=== PATIENT | male | born 1935 | race Caucasian/White ===

== ENCOUNTER 2017-01-13 09:52 | Observation (INO) | payer MEDICARE, BC ==
[2017-01-13] MEDS ORDERED: Albuterol-Ipratrop 3 mg / 0.5 (3 ml) UD ONE ×2 (10:00→11:47)
[2017-01-13] MEDS ORDERED: Albuterol-Ipratrop 3 mg / 0.5 (3 ml) UD IH STA (11:05)
[2017-01-13 11:42] LABS: BASO # 0.1 K/uL (0.0-0.2); BASO % 0.8 % (0.0-2.0); EOS % 0.3 % (0.0-4.0); HEMATOCRIT 34.2 % (34.0-47.0); LYMPH # 0.7 K/uL (1.0-4.3); LYMPH % 6.4 % (20.0-40.0); MEAN CELL VOLUME 95.1 fL (81.0-99.0); MEAN CORPUSCULAR HEMOGLOBIN 31.6 pg (27.0-31.0); MEAN CORPUSCULAR HGB CONC 33.3 g/dL (33.0-37.0); MEAN PLATELET VOLUME 9.1 fL (7.2-11.7); PLATELET COUNT 168 K/uL (130-400); RED CELL DISTRIBUTION WIDTH 14.9 % (11.5-14.5); WHITE BLOOD COUNT 10.8 K/uL (4.8-10.8)
[2017-01-13] MEDS ORDERED: Ipratropium 0.02% Inhal Soln (0.5 mg/2.5 ml) UD IH ONE (11:47)
--- NOTE | 2017-01-13 11:55 | C.PDOC ---
History Of Present Illness 81 y/o F c PMHx ESRD on HD, COPD p/w general weakness x 3 days. Patient missed dialysis on Friday. He denies fever, chills, chest pain, cough, dyspnea, nausea , vomiting, diarrhea, dysuria, injury. Time Seen by Provider: 01/13/17 10:47 Chief Complaint (Nursing): Shortness Of Breath Past Medical History Vital Signs: Last Vital Signs Temp 98.4 F 01/13/17 10:04 Pulse 83 01/13/17 14:57 Resp 22 01/13/17 14:57 BP 179/63 H 01/13/17 14:57 Pulse Ox 96 01/13/17 14:57 - Medical History PMH: HTN, End Stage Renal Disease Family History: States: No Known Family Hx - Social History Hx Alcohol Use: No Hx Substance Use: No - Immunization History Hx Tetanus Toxoid Vaccination: No Hx Influenza Vaccination: Yes (2015) Hx Pneumococcal Vaccination: Yes (2015) Review Of Systems Except As Marked, All Systems Reviewed And Found Negative. Constitutional: Negative for: Fever Cardiovascular: Negative for: Chest Pain Physical Exam - Physical Exam Additional Physical Exam Comments: Constitutional: No acute distress. Head: Normocephalic. Atraumatic. Eyes: PERRL. EOMI ENT: Moist mucous membranes. Neck: Supple. Cardiovascular: Regular rate. Radial pulses 2+ bilaterally. Chest: No tenderness. Respiratory: Tachypneic. Wheezing diffusely. GI: Soft. Nontender. Nondistended. Back: No CVA tenderness. No midline tenderness. Musculoskeletal: No tenderness or swelling of extremities. Skin: No rash. Neurologic: Alert, no focal deficit. ED Course And Treatment - Laboratory Results Result Diagrams: 01/13/17 11:36 01/13/17 11:36 O2 Sat by Pulse Oximetry: 93 Medical Decision Making Medical Decision Making: Patient appears to have COPD exacerbation although he denied any trouble breathing multiple times. Also with hyperkalemia and elevated proBNP. All will likely resolve with dialysis. Dr. Vines consulted. Dr. Seth accepts patient to observation for emergent dialysis. Disposition - Disposition Disposition: HOSPITALIZED Disposition Time: 12:50 Condition: FAIR - Clinical Impression Clinical Impression: Hyperkalemia, Shortness of breath
[2017-01-13 12:04] LABS: NEUTROPHIL 77 % (50-75); TOTAL CELLS COUNTED 100
[2017-01-13 12:05] LABS: ALB/GLOB RATIO 1.4 (1.0-2.1); CALCIUM 7.1 mg/dl (8.6-10.4); TOTAL PROTEIN 6.9 g/dL (6.3-8.3)
[2017-01-13 12:40] LABS: POTASSIUM 6.4 mmol/L (3.6-5.2)
--- NOTE | 2017-01-13 12:51 | RAD ---
HISTORY: weakness, missed dialysis COMPARISON: No prior. FINDINGS: LUNGS: Moderate venous congestion with bibasilar airspace opacities and small right pleural effusion. PLEURA: As above. CARDIOVASCULAR: Cardiomegaly. Calcification at the aortic knob. Left axillary stent in place. OSSEOUS STRUCTURES: No significant abnormalities. VISUALIZED UPPER ABDOMEN: Normal. OTHER FINDINGS: None. IMPRESSION: Moderate venous congestion with bibasilar airspace opacities and small right pleural effusion.
--- NOTE | 2017-01-13 13:32 | CP.PCM.CON ---
History of Present Illness - History of Present Illness History of Present Illness: 81 y/o F c PMHx ESRD on HD, COPD p/w general weakness x 3 days. Patient missed dialysis on Friday. He denies fever, chills, chest pain, cough, dyspnea, nausea , vomiting, diarrhea, dysuria, injury. Recently poorly compliant with dialysis sessions Now very dyspneic and has K=6.4 PMH: HTN CON COPD CONSULT DICTATED WILL ARRANGE FOR IMMEDIATE DIALYSIS Past Patient History - Past Social History Smoking Status: Never Smoked - CARDIAC Hx Hypertension: Yes - RENAL Hx Dialysis: Yes Type of Dialysis Access: Left AV shunt Date of Last Dialysis Treatment: 01/08/17 - PSYCHIATRIC Hx Substance Use: No - SURGICAL HISTORY Hx Surgeries: No - ANESTHESIA Hx Anesthesia: No Meds Allergies/Adverse Reactions: Allergies Allergy/AdvReac Type Severity Reaction Status Date / Time No Known Allergies Allergy Verified 01/13/17 10:09 Results - Vital Signs Recent Vital Signs: Last Vital Signs Temp 98.4 F 01/13/17 10:04 Pulse 81 01/13/17 10:04 Resp 25 H 01/13/17 10:04 BP 188/65 H 01/13/17 10:04 Pulse Ox 93 L 01/13/17 11:55 - Labs Result Diagrams: 01/13/17 11:36 01/13/17 11:36 Labs: Laboratory Results - last 24 hr 01/13/17 01/13/17 11:36 11:36 WBC 10.8 RBC 3.60 L Hgb 11.4 Hct 34.2 MCV 95.1 MCH 31.6 H MCHC 33.3 RDW 14.9 H Plt Count 168 MPV 9.1 Neut % (Auto) 83.5 H Lymph % (Auto) 6.4 L Fajardo % (Auto) 9.0 Eos % (Auto) 0.3 Baso % (Auto) 0.8 Neut # 9.0 H Lymph # 0.7 L Fajardo # 1.0 H Eos # 0.0 Baso # 0.1 Neutrophils % (Manual) 77 H Band Neutrophils % 7 H Lymphocytes % (Manual) 8 L Monocytes % (Manual) 8 Platelet Estimate Normal RBC Morphology Normal Sodium 132 Potassium 6.4 H* Chloride 99 Carbon Dioxide 17 L Anion Gap 22 H BUN 79 H Creatinine 10.2 H* Est GFR ( Amer) 4 Est GFR (Non-Af Amer) 4 Random Glucose 129 H Calcium 7.1 L Total Bilirubin 1.0 AST 12 L ALT 10 Alkaline Phosphatase 74 NT-Pro-B Natriuret Pep 21565 H Total Protein 6.9 Albumin 4.0 Globulin 2.9 Albumin/Globulin Ratio 1.4
--- NOTE | 2017-01-13 17:15 | CON ---
DATE: 01/13/2017 HISTORY OF PRESENT ILLNESS: The patient is a 81-year-old man who missed several dialysis aman atments. He has been poorly compliant recently, only going to 1 or 2 dialyses a week. He missed dial ysis days ago, came in very short of breath and in congestive heart failure. Had a potassium of 6.4 as well. PAST MEDICAL HISTORY: Hypertension, nephrosclerosis, chronic obstructive nephropathy, and COPD. PAST SURGICAL HISTORY: Left arm AV fistula. SOCIAL HISTORY: Positive for smoking in the remote past. No history of alcohol abuse or illicit emre g use. MEDICATIONS: He takes albuterol, PhosLo and blood pressure medications. He does not know the name o f the blood pressure medications. REVIEW OF SYSTEMS: Increasing dyspnea on exertion of less than one block. No increasing cough recent ly. No fevers, no chills. No nausea, vomiting, or diarrhea. No rashes, no visual disturbances or h earing deficits. Other review of systems are all negative. FAMILY HISTORY: Noncontributory. PHYSICAL EXAMINATION: GENERAL: He is a well-developed dyspneic man. VITAL SIGNS: Blood pressure 188/65, temperature 98.4, pulse ox 93%, heart rate was 81. HEENT: Anicteric. Mouth was clear. NECK: No JVD. LUNGS: Almendarez showed increased rales and rhonchi throughout both lung almendarez. HEART: Regular rhythm, no murmur appreciated. ABDOMEN: Distended, no masses or organomegaly. EXTREMITIES: No peripheral edema. He had a left upper extremity AV fistula with thrill and bruit. LABORATORY DATA: Blood work showed hemoglobin 11.4, potassium 6.4, calcium 7.1, creatinine 10.2. He had a chest x-ray done and it showed moderate congestive heart failure and right pleural effusion. IMPRESSION: Congestive heart failure, poor dialysis compliance, end-stage renal disease, nephroscler osis, chronic obstructive nephropathy, history of chronic obstructive pulmonary disease and . PLAN: Will be for immediate dialysis, fluid removal. Will arrange for this as soon as possible. Th e patient is to increase his compliance with dialysis. Davon Vines MD cc: [id number] TT: 01/13/2017 17:14:40 Confirmation # [id number] Dictation # [id number]
--- NOTE | 2017-01-13 18:12 | CP.PCM.HP ---
History of Present Illness - History of Present Illness History of Present Illness: Chief complaint: Lethargic and weakness History present illness: 81-year-old male with history of end-stage renal disease on dialysis, history of CVA, carotid endarterectomy, peripheral vascular disease, hypertension on hemodialysis. Patient did not go to the dialysis recently for 1 week, patient is claiming that the he is not feeling well, he was feeling increasingly weakness, and lethargic. He was not able to get up and go to the dialysis. He missed at least 2 hemo dialysis. Patient came to the emergency room because of increasing weakness, increasing lethargy. In the emergency room patient was found to have elevated potassium level, and also congested lungs. Blood pressure was also noted to be elevated. Patient did not have any chest pain. No cough. Denies any diarrhea. No abdominal pain. But increasing weakness on the poor appetite noted Past medical history: Hypertension, hypercholesterolemia, CVA, carotid endarterectomy Allergy: No known drug allergy Personal history: Patient is to smoker in the past. He drinks occasionally. He drinks coffee daily. Surgical history: Carotid endarterectomy, prostate surgery. Current medications reviewed Review of system: Currently having minimal weakness, also tiredness fatigability noted. Poor appetite. Patient has a uremic odor. No chest pain. Leg swelling negative. 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 Blood pressure stable. Chest x-ray mild congestive changes. Assessment and recommendation: 81-year-old male with history of end-stage renal disease on dialysis, history of CVA, carotid endarterectomy, peripheral vascular disease, hypertension on hemodialysis. Patient missed hemodialysis. Increasing weakness and lethargy, secondary to uremia. Patient will be getting the dialysis immediately. We'll monitor the patient in the telemetry. Repeat the labs in the morning. Physical exercise and therapy advice and will follow the patient Present on Admission - Present on Admission Any Indicators Present on Admission: No History of DVT/PE: No History of Uncontrolled Diabetes: No Urinary Catheter: No Past Patient History - Past Social History Smoking Status: Never Smoked - CARDIAC Hx Hypertension: Yes - RENAL Hx Dialysis: Yes Type of Dialysis Access: Left AV shunt Date of Last Dialysis Treatment: 01/08/17 - PSYCHIATRIC Hx Substance Use: No - SURGICAL HISTORY Hx Surgeries: No - ANESTHESIA Hx Anesthesia: No Meds Allergies/Adverse Reactions: Allergies Allergy/AdvReac Type Severity Reaction Status Date / Time No Known Allergies Allergy Verified 01/13/17 10:09 Results - Vital Signs Recent Vital Signs: Last Vital Signs Temp 98.9 F 01/13/17 15:50 Pulse 83 01/13/17 14:57 Resp 22 01/13/17 14:57 BP 179/63 H 01/13/17 14:57 Pulse Ox 93 L 01/13/17 15:36 - Labs Result Diagrams: 01/13/17 11:36 01/13/17 11:36
[2017-01-14 08:50] LABS: BASO # 0.2 K/uL (0.0-0.2); EOS # 0.3 K/uL (0.0-0.7); EOS % 4.8 % (0.0-4.0); HEMATOCRIT 36.1 % (35.0-51.0); LYMPH # 1.2 K/uL (1.0-4.3); LYMPH % 18.2 % (20.0-40.0); MEAN CELL VOLUME 94.5 fL (80.0-94.0); MEAN CORPUSCULAR HEMOGLOBIN 31.5 pg (27.0-31.0); MEAN CORPUSCULAR HGB CONC 33.3 g/dL (33.0-37.0); MEAN PLATELET VOLUME 9.4 fL (7.2-11.7); MONO # 0.8 K/uL (0.0-0.8); MONO % 12.3 % (0.0-10.0); RED CELL DISTRIBUTION WIDTH 14.5 % (11.5-14.5); WHITE BLOOD COUNT 6.8 K/uL (4.8-10.8)
[2017-01-14 09:16] LABS: POTASSIUM 4.1 mmol/L (3.6-5.2)
[2017-01-14 09:18] LABS: BILIRUBIN,TOTAL 0.9 mg/dL (0.2-1.3)
[2017-01-14 09:19] LABS: ALB/GLOB RATIO 1.2 (1.0-2.1)
[2017-01-14 09:20] LABS: CALCIUM 7.8 mg/dl (8.6-10.4)
[2017-01-14] MEDS: Multivitamin Vitamin B Complex (Nephro-Vite) Tab PO SCH (10:02)
--- NOTE | 2017-01-14 10:48 | CP.PCM.PN ---
Subjective - Date & Time of Evaluation Date of Evaluation: 01/14/17 Time of Evaluation: 10:46 - Subjective Subjective: seen and examined hd yesterday k improved breathing improved Objective - Vital Signs/Intake and Output Vital Signs (last 24 hours): Temp Pulse Resp BP Pulse Ox 98.7 F 84 20 140/90 96 01/14/17 07:25 01/14/17 07:25 01/14/17 07:25 01/14/17 10:02 01/14/17 07:25 - Medications Medications: Current Medications Amlodipine Besylate (Norvasc) 10 mg PO DAILY [facility] Last Admin: 01/14/17 10:03 Dose: 10 mg Calcium Acetate (Phoslo) 667 mg PO BIDCC [facility] Last Admin: 01/14/17 10:02 Dose: 667 mg Carvedilol (Coreg) 6.25 mg PO BID [facility] Last Admin: 01/14/17 10:03 Dose: 6.25 mg Furosemide (Lasix) 20 mg PO DAILY [facility] Last Admin: 01/14/17 10:02 Dose: 20 mg Heparin Sodium (Porcine) (Heparin) 5,000 units SC Q8 [facility] Last Admin: 01/14/17 05:41 Dose: 5,000 units Rosuvastatin Calcium (Crestor) 5 mg PO HS [facility] Last Admin: 01/13/17 21:55 Dose: 5 mg Tamsulosin HCl (Flomax) 0.4 mg PO DAILY [facility] Last Admin: 01/14/17 10:03 Dose: 0.4 mg Vitamin B Complex/Vit C/Folic Acid (Nephro-Mario) 1 tab PO 0800 [facility] Last Admin: 01/14/17 10:02 Dose: 1 tab - Labs Labs: 01/14/17 08:38 01/14/17 08:38 - Constitutional Appears: Non-toxic, No Acute Distress, Chronically Ill - Head Exam Head Exam: NORMAL INSPECTION - Eye Exam Eye Exam: Normal appearance - ENT Exam ENT Exam: Mucous Membranes Moist, Normal Exam - Neck Exam Neck Exam: Normal Inspection - Respiratory Exam Respiratory Exam: Decreased Breath Sounds, NORMAL BREATHING PATTERN - Cardiovascular Exam Cardiovascular Exam: REGULAR RHYTHM, RRR - GI/Abdominal Exam GI & Abdominal Exam: Distended, Soft, Normal Bowel Sounds - Extremities Exam Extremities Exam: Normal Inspection Assessment and Plan (1) CHF (congestive heart failure) Status: Acute (2) Fluid excess Status: Acute (3) Hypertension Status: Acute (4) Hyperkalemia Status: Acute (5) Shortness of breath Status: Acute - Assessment and Plan (Free Text) Assessment: hd tomorrow, mwf. 3/week bp improved renal diet check phos
--- NOTE | 2017-01-14 12:43 | CARD ---
APPROVED REPORT EKG Measurement Heart [id number] <Conclusion> Normal sinus rhythm Possible Left atrial enlargement Possible Anterior infarct, age undetermined Abnormal ECG
[2017-01-14] MEDS ORDERED: cefTRIAXone IV 1 gm in Dextros 50 ML IVPB SCH (16:00)
[2017-01-14] MEDS ORDERED: Azithromycin 500 MG in Sodium Chloride 0.9% 250 ML IVPB ONE (16:00)
[2017-01-14] MEDS: cefTRIAXone IV 1 gm in Dextros 50 ML IVPB SCH (17:51)
[2017-01-15] MEDS: Multivitamin Vitamin B Complex (Nephro-Vite) Tab PO SCH (07:47)
--- NOTE | 2017-01-15 10:17 | RAD ---
HISTORY: Pneumonia COMPARISON: 01/13/2017. TECHNIQUE: Chest PA and lateral FINDINGS: LUNGS: The lungs are well inflated and clear. PLEURA: No significant pleural effusion identified. No pneumothorax apparent. CARDIOVASCULAR: The heart is normal in size. Atherosclerotic aortic arch calcifications are present. OSSEOUS STRUCTURES: No significant abnormalities. VISUALIZED UPPER ABDOMEN: Normal. OTHER FINDINGS: None. IMPRESSION: No active pulmonary disease.
--- NOTE | 2017-01-15 14:56 | CP.PCM.PN ---
Subjective - Date & Time of Evaluation Date of Evaluation: 01/15/17 Time of Evaluation: 14:54 - Subjective Subjective: s/p dialysis now UF 3000ml Feels better but c/o weakness no other complaints BP better controlled now Objective - Vital Signs/Intake and Output Vital Signs (last 24 hours): Temp Pulse Resp BP Pulse Ox 98.6 F 90 16 137/64 97 01/15/17 10:00 01/15/17 10:00 01/15/17 10:00 01/15/17 13:25 01/15/17 10:00 - Medications Medications: Current Medications Amlodipine Besylate (Norvasc) 10 mg PO DAILY [facility] Last Admin: 01/15/17 09:29 Dose: Not Given [facility] Admin: 01/15/17 07:47 Dose: 667 mg Carvedilol (Coreg) 6.25 mg PO BID [facility] Last Admin: 01/15/17 09:30 Dose: Not Given Furosemide (Lasix) 20 mg PO DAILY [facility] Last Admin: 01/15/17 09:29 Dose: Not Given Heparin Sodium (Porcine) (Heparin) 5,000 units SC Q8 [facility] Last Admin: 01/15/17 13:27 Dose: Not Given Ceftriaxone Sodium (Rocephin Iv 1 Gm Duplex) 50 mls @ 100 mls/hr IVPB DAILY@ 1700 [facility] Last Admin: 01/14/17 17:51 Dose: 100 mls/hr Rosuvastatin Calcium (Crestor) 5 mg PO HS [facility] Last Admin: 01/14/17 21:35 Dose: 5 mg Tamsulosin HCl (Flomax) 0.4 mg PO DAILY [facility] Last Admin: 01/15/17 09:27 Dose: 0.4 mg Vitamin B Complex/Vit C/Folic Acid (Nephro-Mario) 1 tab PO 0800 [facility] Last Admin: 01/15/17 07:47 Dose: 1 tab - Labs Labs: 01/14/17 08:38 01/14/17 08:38 - Constitutional Appears: No Acute Distress, Chronically Ill - Head Exam Head Exam: ATRAUMATIC, NORMAL INSPECTION - Eye Exam Eye Exam: EOMI, Normal appearance - Neck Exam Neck Exam: Normal Inspection. absent: Tenderness - Respiratory Exam Respiratory Exam: Clear to Ausculation Bilateral, NORMAL BREATHING PATTERN - Cardiovascular Exam Cardiovascular Exam: REGULAR RHYTHM, +S1 - GI/Abdominal Exam GI & Abdominal Exam: Soft. absent: Tenderness - Extremities Exam Extremities Exam: Normal Inspection. absent: Tenderness - Neurological Exam Neurological Exam: Awake, CN II-XII Intact - Skin Skin Exam: Dry, Warm Assessment and Plan (1) ESRD (end stage renal disease) Status: Acute (2) CHF (congestive heart failure) Status: Acute (3) Hyperkalemia Status: Acute (4) Hypertension Status: Acute - Assessment and Plan (Free Text) Plan: Monitor HTN Dialysis MWF
[2017-01-15 16:14] VITALS: RESP 20
[2017-01-15] MEDS: cefTRIAXone IV 1 gm in Dextros 50 ML IVPB SCH (17:30)
--- NOTE | 2017-01-16 01:26 | CP.PCM.PN ---
Subjective - Date & Time of Evaluation Date of Evaluation: 01/15/17 Time of Evaluation: 15:15 - Subjective Subjective: Patient is not in any distress. No chest pain. Patient is being monitored because of the suspected pneumonia. Started on Rocephin. Clinically stable. If okay by tomorrow we'll transfer the patient and discharged home. Objective - Vital Signs/Intake and Output Vital Signs (last 24 hours): Temp Pulse Resp BP Pulse Ox 98.3 F 79 20 173/62 H 98 01/15/17 23:30 01/15/17 23:30 01/15/17 23:30 01/15/17 23:30 01/15/17 23:30 Intake and Output: 01/15/17 01/16/17 18:59 06:59 Intake Total 50 Balance 50 - Medications Medications: Current Medications Amlodipine Besylate (Norvasc) 10 mg PO DAILY [facility] Last Admin: 01/15/17 09:29 Dose: Not Given Calcium Acetate (Phoslo) 667 mg PO BIDCC [facility] Last Admin: 01/15/17 17:30 Dose: 667 mg Carvedilol (Coreg) 6.25 mg PO BID [facility] Last Admin: 01/15/17 17:30 Dose: 6.25 mg Furosemide (Lasix) 20 mg PO DAILY [facility] Last Admin: 01/15/17 09:29 Dose: Not Given Heparin Sodium (Porcine) (Heparin) 5,000 units SC Q8 [facility] Last Admin: 01/15/17 21:25 Dose: Not Given Ceftriaxone Sodium (Rocephin Iv 1 Gm Duplex) 50 mls @ 100 mls/hr IVPB DAILY@ 1700 [facility] Last Admin: 01/15/17 17:30 Dose: 100 mls/hr Rosuvastatin Calcium (Crestor) 5 mg PO HS [facility] Last Admin: 01/15/17 21:08 Dose: 5 mg Tamsulosin HCl (Flomax) 0.4 mg PO DAILY [facility] Last Admin: 01/15/17 09:27 Dose: 0.4 mg Vitamin B Complex/Vit C/Folic Acid (Nephro-Mario) 1 tab PO 0800 [facility] Last Admin: 01/15/17 07:47 Dose: 1 tab - Labs Labs: 01/14/17 08:38 01/14/17 08:38
--- NOTE | 2017-01-16 01:27 | CP.PCM.PN ---
Subjective - Date & Time of Evaluation Date of Evaluation: 01/16/17 Time of Evaluation: 01:27 - Subjective Subjective: See progress note, discharge noted Objective - Vital Signs/Intake and Output Vital Signs (last 24 hours): Temp Pulse Resp BP Pulse Ox 98.3 F 79 20 173/62 H 98 01/15/17 23:30 01/15/17 23:30 01/15/17 23:30 01/15/17 23:30 01/15/17 23:30 Intake and Output: 01/15/17 01/16/17 18:59 06:59 Intake Total 50 Balance 50 - Medications Medications: Current Medications Amlodipine Besylate (Norvasc) 10 mg PO DAILY [facility] Last Admin: 01/15/17 09:29 Dose: Not Given Calcium Acetate (Phoslo) 667 mg PO BIDCC [facility] Last Admin: 01/15/17 17:30 Dose: 667 mg Carvedilol (Coreg) 6.25 mg PO BID [facility] Last Admin: 01/15/17 17:30 Dose: 6.25 mg Furosemide (Lasix) 20 mg PO DAILY [facility] Last Admin: 01/15/17 09:29 Dose: Not Given Heparin Sodium (Porcine) (Heparin) 5,000 units SC Q8 [facility] Last Admin: 01/15/17 21:25 Dose: Not Given Ceftriaxone Sodium (Rocephin Iv 1 Gm Duplex) 50 mls @ 100 mls/hr IVPB DAILY@ 1700 [facility] Last Admin: 01/15/17 17:30 Dose: 100 mls/hr Rosuvastatin Calcium (Crestor) 5 mg PO HS [facility] Last Admin: 01/15/17 21:08 Dose: 5 mg Tamsulosin HCl (Flomax) 0.4 mg PO DAILY [facility] Last Admin: 01/15/17 09:27 Dose: 0.4 mg Vitamin B Complex/Vit C/Folic Acid (Nephro-Mario) 1 tab PO 0800 [facility] Last Admin: 01/15/17 07:47 Dose: 1 tab - Labs Labs: 01/14/17 08:38 01/14/17 08:38
[2017-01-16 08:40] VITALS: TEMP 98.2; O2SAT 95
[2017-01-16] MEDS: Multivitamin Vitamin B Complex (Nephro-Vite) Tab PO SCH (09:02)
[2017-01-16 11:59] VITALS: BP 171/65; PULSE 78
--- NOTE | 2017-01-16 14:45 | CP.PCM.PN ---
Subjective - Date & Time of Evaluation Date of Evaluation: 01/16/17 Time of Evaluation: 14:44 - Subjective Subjective: seen and examiend no complaints hd yesterday Objective - Vital Signs/Intake and Output Vital Signs (last 24 hours): Temp Pulse Resp BP Pulse Ox 98.2 F 78 20 171/65 H 95 01/16/17 08:10 01/16/17 11:25 01/16/17 08:10 01/16/17 11:25 01/16/17 08:10 Intake and Output: 01/16/17 01/16/17 06:59 18:59 Intake Total 50 Balance 50 - Medications Medications: Current Medications Amlodipine Besylate (Norvasc) 10 mg PO DAILY [facility] Last Admin: 01/16/17 09:48 Dose: 10 mg Calcium Acetate (Phoslo) 667 mg PO BIDCC [facility] Last Admin: 01/16/17 09:02 Dose: 667 mg Carvedilol (Coreg) 6.25 mg PO BID [facility] Last Admin: 01/16/17 09:48 Dose: 6.25 mg Furosemide (Lasix) 20 mg PO DAILY [facility] Last Admin: 01/16/17 09:47 Dose: 20 mg Heparin Sodium (Porcine) (Heparin) 5,000 units SC Q8 [facility] Last Admin: 01/16/17 06:45 Dose: 5,000 units Ceftriaxone Sodium (Rocephin Iv 1 Gm Duplex) 50 mls @ 100 mls/hr IVPB DAILY@ 1700 [facility] Last Admin: 01/15/17 17:30 Dose: 100 mls/hr Rosuvastatin Calcium (Crestor) 5 mg PO HS [facility] Last Admin: 01/15/17 21:08 Dose: 5 mg Tamsulosin HCl (Flomax) 0.4 mg PO DAILY [facility] Last Admin: 01/16/17 09:47 Dose: 0.4 mg Vitamin B Complex/Vit C/Folic Acid (Nephro-Mario) 1 tab PO 0800 [facility] Last Admin: 01/16/17 09:02 Dose: 1 tab - Labs Labs: 01/14/17 08:38 01/14/17 08:38 - Constitutional Appears: Non-toxic, No Acute Distress, Chronically Ill - Head Exam Head Exam: NORMAL INSPECTION - Eye Exam Eye Exam: Normal appearance - ENT Exam ENT Exam: Mucous Membranes Moist, Normal Exam - Neck Exam Neck Exam: Normal Inspection - Respiratory Exam Respiratory Exam: Clear to Ausculation Bilateral, NORMAL BREATHING PATTERN - Cardiovascular Exam Cardiovascular Exam: REGULAR RHYTHM, RRR - GI/Abdominal Exam GI & Abdominal Exam: Distended, Soft - Extremities Exam Extremities Exam: Normal Inspection Assessment and Plan (1) CHF (congestive heart failure) Status: Acute (2) Fluid excess Status: Acute (3) Hypertension Status: Acute (4) Hyperkalemia Status: Acute (5) Shortness of breath Status: Acute - Assessment and Plan (Free Text) Assessment: maintain hd mwf add hydralazine for high bp
--- NOTE | 2017-01-16 17:15 | PCM.HF ---
Heart Failure Core Measure - Heart Failure Ejection Fraction: 40 % or Greater JADEN Inhibitor Prescribed: No Contraindication/Reason for not providing: ESRD Beta-Dmitry Prescribed: Carvedilol Angiotensin II Receptor Dmitry Prescribed: No Contraindication/Reason for not providing: ESRD AnticoagulationTherapy for Atrial Fibrillation/Atrialflutter: No Contraindication/Reason for not providing: NO HX OF AFIB Aldosterone Antagonist Prescribed: No Contraindication/Reason for not providing: RISK FOR HYPERKALEMAI/ ESRD Hydralazine Nitrate Prescribed: No Contraindication/Reason for not providing: ON CALCIUM CHANNEL DMITRY Implantable Cardioverter Defibrillator Therapy: No Contraindication/Reason for not providing: EF.45 Cardiac Resynchronization Therapy Prescribed: No Contraindication/Reason for not providing: EF>45 - Follow up Will be discharged to: Home Follow Up Date (must be within 7 days from discharge): 01/21/17 Follow Up Time: 09:00
--- NOTE | 2017-01-19 23:01 | CP.PCM.DIS ---
Provider - Provider Date of Admission: 01/13/17 13:36 Attending physician: Heron Seth MD Time Spent in preparation of Discharge (in minutes): 45 Hospital Course - Lab Results Lab Results: Most Recent Lab Values WBC 6.8 K/uL (4.8-10.8) 01/14/17 08:38 RBC 3.82 Mil/uL (4.40-5.90) L 01/14/17 08:38 Hgb 12.0 g/dL (12.0-18.0) 01/14/17 08:38 Hct 36.1 % (35.0-51.0) 01/14/17 08:38 MCV 94.5 fL (80.0-94.0) H 01/14/17 08:38 MCH 31.5 pg (27.0-31.0) H 01/14/17 08:38 MCHC 33.3 g/dL (33.0-37.0) 01/14/17 08:38 RDW 14.5 % (11.5-14.5) 01/14/17 08:38 Plt Count 168 K/uL (130-400) 01/14/17 08:38 MPV 9.4 fL (7.2-11.7) 01/14/17 08:38 Neut % (Auto) 61.7 % (50.0-75.0) 01/14/17 08:38 Lymph % (Auto) 18.2 % (20.0-40.0) L 01/14/17 08:38 Chambers % (Auto) 12.3 % (0.0-10.0) H 01/14/17 08:38 Eos % (Auto) 4.8 % (0.0-4.0) H 01/14/17 08:38 Baso % (Auto) 3.0 % (0.0-2.0) H 01/14/17 08:38 Neut # 4.2 K/uL (1.8-7.0) 01/14/17 08:38 Lymph # 1.2 K/uL (1.0-4.3) 01/14/17 08:38 Chambers # 0.8 K/uL (0.0-0.8) 01/14/17 08:38 Eos # 0.3 K/uL (0.0-0.7) 01/14/17 08:38 Baso # 0.2 K/uL (0.0-0.2) 01/14/17 08:38 Neutrophils % (Manual) 77 % (50-75) H 01/13/17 11:36 Band Neutrophils % 7 % (0-2) H 01/13/17 11:36 Lymphocytes % (Manual) 8 % (20-40) L 01/13/17 11:36 Monocytes % (Manual) 8 % (0-10) 01/13/17 11:36 Platelet Estimate Normal (NORMAL) 01/13/17 11:36 RBC Morphology Normal 01/13/17 11:36 Sodium 140 mmol/L (132-148) 01/14/17 08:38 Potassium 4.1 mmol/L (3.6-5.2) 01/14/17 08:38 Chloride 98 mmol/L (98-107) 01/14/17 08:38 Carbon Dioxide 29 mmol/L (22-30) 01/14/17 08:38 Anion Gap 18 (10-20) 01/14/17 08:38 BUN 34 mg/dL (9-20) H 01/14/17 08:38 Creatinine 5.4 MG/DL (0.8-1.5) H 01/14/17 08:38 Est GFR ( Amer) 12 01/14/17 08:38 Est GFR (Non-Af Amer) 10 01/14/17 08:38 Random Glucose 87 mg/dL (75-110) 01/14/17 08:38 Calcium 7.8 mg/dl (8.6-10.4) L 01/14/17 08:38 Phosphorus 5.4 mg/dL (2.5-4.5) H 01/15/17 07:14 Total Bilirubin 0.9 mg/dL (0.2-1.3) 01/14/17 08:38 AST 16 U/L (17-59) L D 01/14/17 08:38 ALT 13 U/L (21-72) L D 01/14/17 08:38 Alkaline Phosphatase 73 U/L (38-126) 01/14/17 08:38 NT-Pro-B Natriuret Pep 93204 pg/mL (0-900) H 01/13/17 11:36 Total Protein 7.0 g/dL (6.3-8.3) 01/14/17 08:38 Albumin 3.9 g/dL (3.5-5.0) 01/14/17 08:38 Globulin 3.1 gm/dL (2.2-3.9) 01/14/17 08:38 Albumin/Globulin Ratio 1.2 (1.0-2.1) 01/14/17 08:38 Procalcitonin 3.98 NG/ML (0.19-0.49) H 01/14/17 08:38 - Hospital Course Hospital Course: 81-year-old male with history of end-stage renal disease on dialysis, history of CVA, carotid endarterectomy, peripheral vascular disease, hypertension on hemodialysis. Patient did not go to the dialysis recently for 1 week, patient is claiming that the he is not feeling well, he was feeling increasingly weakness, and lethargic. He was not able to get up and go to the dialysis. He missed at least 2 hemo dialysis. Patient came to the emergency room because of increasing weakness, increasing lethargy. In the emergency room patient was found to have elevated potassium level, and also congested lungs. Blood pressure was also noted to be elevated. Patient did not have any chest pain. No cough. Denies any diarrhea. No abdominal pain. But increasing weakness on the poor appetite noted Past medical history: Hypertension, hypercholesterolemia, CVA, carotid endarterectomy Allergy: No known drug allergy Personal history: Patient is to smoker in the past. He drinks occasionally. He drinks coffee daily. Surgical history: Carotid endarterectomy, prostate surgery. Current medications reviewed Review of system: Currently having minimal weakness, also tiredness fatigability noted. Poor appetite. Patient has a uremic odor. No chest pain. Leg swelling negative. 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 Blood pressure stable. Chest x-ray mild congestive changes. Assessment and recommendation: 81-year-old male with history of end-stage renal disease on dialysis, history of CVA, carotid endarterectomy, peripheral vascular disease, hypertension on hemodialysis. Patient missed hemodialysis. Increasing weakness and lethargy, secondary to uremia. Patient will be getting the dialysis immediately. We'll monitor the patient in the telemetry. Repeat the labs in the morning. Physical exercise and therapy advice and will follow the patient Received hemodialysis. Physical therapy started. Chest x-ray showing evidence of suspected pneumonia. Cough noted. Started on IV antibiotic. Patient clinic is stable. Cultures negative so far Patient will be discharged home him a he will continue Augmentin and Zithromax. Will follow the patient Discharge Exam - Head Exam Head Exam: NORMAL INSPECTION Discharge Plan - Discharge Medications Prescriptions: Clarithromycin [Clarithromycin ER] 500 mg PO DAILY #3 tab.er.24h Carvedilol [Coreg] 6.25 mg PO BID #60 tab Rosuvastatin Calcium [Crestor] 5 mg PO HS #30 tab Tamsulosin [Flomax] 0.4 mg PO DAILY #30 cap Furosemide [Lasix] 20 mg PO DAILY #30 tab Vitamin B Complex/Vit C/Folic [Nephro-Mario] 1 tab PO 0800 #30 tab amLODIPine [Norvasc] 10 mg PO DAILY #30 tab Calcium Acetate [Phoslo] 667 mg PO BIDCC #90 tab - Follow Up Plan Condition: FAIR Disposition: HOME/ ROUTINE Instructions: Furosemide (By mouth), Clarithromycin (By mouth), Amlodipine (By mouth), Tamsulosin (By mouth), Calcium Acetate (By mouth), Rosuvastatin (By mouth), Vitamin B/Vitamin C (By mouth), Pulmonary Edema (DC), Pneumococcal Vaccine for Adults (DC), Hemodialysis (DC), Influenza Vaccine (DC), Dyspnea (GEN ) Additional Instructions: Follow up with Dr. Seth in 1 week. Referrals: Heron Seth MD [Staff Provider] -
--- NOTE | 2017-01-19 23:02 | CP.PCM.PN ---
Subjective - Date & Time of Evaluation Date of Evaluation: 01/14/17 Time of Evaluation: 23:02 - Subjective Subjective: Patient chest x-ray showing evidence of pneumonia. Started on antibiotic. Patient was having some cough. Received hemodialysis. Not in any distress. Low-grade fever. Chills noted. Patient is feeling weak Objective - Vital Signs/Intake and Output Vital Signs (last 24 hours): Temp Pulse Resp BP Pulse Ox 98.2 F 78 20 171/65 H 95 01/16/17 08:10 01/16/17 11:25 01/16/17 08:10 01/16/17 11:25 01/16/17 08:10 - Medications Medications: Current Medications Hydralazine HCl (Apresoline) 25 mg PO TID JOSÉ ANTONIO - Labs Labs: 01/14/17 08:38 01/14/17 08:38 Vital signs reviewed No neck vein distention noted Chest good air entry bilaterally, no wheezing or rales noted CVS regular heart sound, no murmur noted Abdomen soft, nontender. 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 Started on IV antibiotic. We'll continue to monitor. Status: Acute (2) Hyperkalemia Status: Acute (3) Shortness of breath Status: Acute
== END 2017-01-16 14:45 | disposition home or self-care (01) ==
LOC: C.ER 09:52 → C.9E 13:36 → EDSEX 13:36 → MERGE 13:36 → C.5T 15:28
PROVIDERS: ADMIT Internal Medicine; ATTEND Internal Medicine
DX: I50.9 Heart failure, unspecified (principal); I12.0 Hypertensive chronic kidney disease with stage 5 chronic kidney disease or end stage renal disease; N18.6 End stage renal disease; Z99.2 Dependence on renal dialysis; I73.9 Peripheral vascular disease, unspecified; E87.5 Hyperkalemia; J44.9 Chronic obstructive pulmonary disease, unspecified; N13.8 Other obstructive and reflux uropathy; Z86.73 Personal history of transient ischemic attack (TIA), and cerebral infarction without residual deficits; Z87.891 Personal history of nicotine dependence
CPT/HCPCS: 36415; 71010; 71020; 80053; 83880; 84100; 84145; 85025; 93005; 94150; 94640; 97162; 97530; 99285; G0257; G0378; G8978; G8979; J0456; J0696; J1644

== ENCOUNTER 2017-01-17 12:16 | Observation (INO) | payer MEDICARE, BC ==
[2017-01-17 12:17] VITALS: BMI 24.1
--- NOTE | 2017-01-17 12:52 | C.PDOC ---
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 Pt states "this happened to me last time," poor historian. Prior admission in 2015 for same. PMHx COPD, HTN, ESRD with dialysis, hypercholesterolemia. Pt currently complaining of generalized weakness. Denies recent illness; compliant with with hemodialysis. Denies headache, numbness, vomiting, abdominal pain, chest pain, SOB, fever or any other complaints. 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 "THIS HAPPENED TO ME LAST TIME". PRIOR ADMISSION 2015 FOR SAME. pmh of COPD, HTN, ESRD with dialysis, hypercholesteremia. CURRENTLY CO GEN WEAKNESS. DENIES RECENT ILLNESS. COMPLIANT W HD EXAM APPEARS WEAK NONTOXIC LUNGS B/L RALES NO RETRACTION SPEAKING FULL SENTENCES NO EDEMA REMAINDER NEG Time Seen by Provider: 01/17/17 12:51 Chief Complaint (Nursing): Weakness/Neurological Deficit History Per: Patient History/Exam Limitations: no limitations Onset/Duration Of Symptoms: Mins Current Symptoms Are (Timing): Gone Seizure Or Post-ictal Symptoms: None Fall Associated With With Symptoms: No Severity: Mild Recent travel outside of the [place]: No - Symptoms Of CVA Recent Head Trauma: No Past Medical History Reviewed: Historical Data, Nursing Documentation, Vital Signs Vital Signs: Last Vital Signs Temp 97.3 F L 01/17/17 12:26 Pulse 72 01/17/17 12:26 Resp 18 01/17/17 12:26 BP 175/65 H 01/17/17 12:26 Pulse Ox 98 01/17/17 13:29 - Medical History PMH: Arthritis, COPD, Gastritis, HTN, Hypercholesterolemia, End Stage Renal Disease (On dialysis), Chronic Kidney Disease Surgical History: Carotid Endarterectomy, Endoscopy - [facility] Procedures DIALYSIS ARTERIOVENOSTOM (03/16/13) HEAD & NECK ENDARTER NEC (12/06/14) HEMODIALYSIS (01/13/15) PACKED CELL TRANSFUSION (01/22/13) PROCEDURE ON SINGLE VESSEL (12/06/14) TRANSURETHRAL PROSTATECTOMY (TULIP) (01/22/13) VENOUS CATHETERIZATION FOR RENAL DIALYSIS (01/22/13) Family History: States: Unknown Family Hx - Social History Hx Tobacco Use: No Hx Alcohol Use: No Hx Substance Use: No - Immunization History Hx Tetanus Toxoid Vaccination: Yes Hx Influenza Vaccination: Yes (2015) Hx Pneumococcal Vaccination: Yes (2016) Review Of Systems Except As Marked, All Systems Reviewed And Found Negative. Constitutional: Positive for: Weakness (generalized). Negative for: Fever Cardiovascular: Negative for: Chest Pain Respiratory: Negative for: Shortness of Breath Gastrointestinal: Negative for: Vomiting, Abdominal Pain Neurological: Positive for: Other (syncopal episode). Negative for: Numbness, Headache Physical Exam - Physical Exam Appears: Non-toxic, No Acute Distress, Other (appears weak) Skin: Warm, Dry, No Rash Head: Atraumatic, Normacephalic Neck: Normal, Normal ROM, Supple Cardiovascular: Rhythm Regular, No Murmur Respiratory: No Accessory Muscle Use, Rales (bilateral), No Rhonchi, No Wheezing , Other (speaking in full sentences) Gastrointestinal/Abdominal: Normal Exam, Soft, No Tenderness Extremity: Normal ROM, No Pedal Edema Extremity: Bilateral: Atraumatic Neurological/Psych: Oriented x3, Normal Speech, Normal Cognition, Normal Motor, Normal Sensation ED Course And Treatment - Laboratory Results Result Diagrams: 01/17/17 13:32 01/17/17 13:32 ECG: Interpreted By Me ECG Rhythm: Sinus Rhythm Rate From EC (BPM) O2 Sat by Pulse Oximetry: 98 (room air) Pulse Ox Interpretation: Normal Progress - Re-Evaluation Re-evaluation Note: 01/17/17 15:27 EXAM UNCH D/W DR SETH - Data Reviewed Data Reviewed: Lab, Diagnostic imaging, EKG, Old records - Continuity of Care Discussed patient case with:: Patient, PMD Medical Decision Making Medical Decision Making: Plan: * EKG * labs * IV fluids Disposition Counseled Patient/Family Regarding: Studies Performed, Diagnosis - Disposition Disposition: HOSPITALIZED Disposition Time: 15:28 Condition: STABLE - POA Present On Arrival: None - Clinical Impression Clinical Impression: ESRD (end stage renal disease) on dialysis, Syncope - Scribe Statement The provider has reviewed the documentation as recorded by the Tremayne Rosales Provider Attestation: All medical record entries made by the Tremayne were at my direction and personally dictated by me. I have reviewed the chart and agree that the record accurately reflects my personal performance of the history, physical exam, medical decision making, and the department course for this patient. I have also personally directed, reviewed, and agree with the discharge instructions and disposition. Decision To Admit - Pt Status Changed To: Hospital Disposition Of: Observation - . Bed Request Type: Telemetry Admitting Physician: Heron Seth Patient Diagnosis: ESRD (end stage renal disease) on dialysis, Syncope
[2017-01-17 13:44] LABS: BASO % 0.4 % (0.0-2.0); EOS # 0.8 K/uL (0.0-0.7); EOS % 7.5 % (0.0-4.0); HEMATOCRIT 36.9 % (35.0-51.0); LYMPH # 0.9 K/uL (1.0-4.3); LYMPH % 8.9 % (20.0-40.0); MEAN CELL VOLUME 94.6 fL (80.0-94.0); MEAN CORPUSCULAR HEMOGLOBIN 30.9 pg (27.0-31.0); MEAN CORPUSCULAR HGB CONC 32.7 g/dL (33.0-37.0); MEAN PLATELET VOLUME 8.6 fL (7.2-11.7); MONO # 0.7 K/uL (0.0-0.8); MONO % 7.2 % (0.0-10.0); PLATELET COUNT 216 K/uL (130-400); RED CELL DISTRIBUTION WIDTH 14.1 % (11.5-14.5); WHITE BLOOD COUNT 10.2 K/uL (4.8-10.8)
[2017-01-17 13:46] LABS: POTASSIUM 4.4 mmol/L (3.6-5.2)
[2017-01-17 13:48] LABS: ALB/GLOB RATIO 1.2 (1.0-2.1); BILIRUBIN,TOTAL 0.7 mg/dL (0.2-1.3); TOTAL PROTEIN 7.8 g/dL (6.3-8.3)
[2017-01-17 13:49] LABS: CALCIUM 9.2 mg/dl (8.6-10.4)
[2017-01-17 14:00] LABS: TROPONIN I 0.019 ng/mL (0.00-0.120)
[2017-01-17 14:12] LABS: BASOPHIL 1 % (0-2); NEUTROPHIL 82 % (50-75); REACTIVE LYMPHOCYTES 1 % (0-0); TOTAL CELLS COUNTED 100
[2017-01-17 14:13] LABS: LARGE PLATELETS PRESENT
--- NOTE | 2017-01-17 19:52 | CP.PCM.HP ---
History of Present Illness - History of Present Illness History of Present Illness: Chief complaint: Syncopal episode. History present illness: 81-year-old male with history of hypertension, hypercholesteremia, gout, end- stage renal disease on dialysis, status post a carotid endarterectomy bilaterally, history of CVA in the past. Patient was sent to emergency room following the dialysis, and during the dialysis episode today, patient developed a sudden onset of dizzy spell, and he was not responding. Immediately patient was sent to the emergency room. Upon arrival to the emergency room patient was alert awake. He was not in any distress. He was moving all 4 extremities at the time. He was not having any symptoms. Patient claims that he did have a similar episode in the past. Past medical history hypertension, end-stage renal disease on dialysis, high cholesterol, gout, arthritis. Allergy: No known drug allergy. Personal history: Used to be a smoker in the past and no alcohol no drugs no Surgical history bilateral carotid endarterectomy, AV shunt. Family history significant for heart disease. Review of systems: Currently having no headache, denies any visual symptoms, he is feeling much better at this time, no chest pain, no shortness of breath, he does not know what happened during the dialysis. On examination: HEENT PERRLA, neck supple No thyromegaly was noted and no cervical adenopathy noted Chest bilateral good air entry, no wheezing or rales noted CVS regular heart sound, no murmur Abdomen soft and no organomegaly Extremities no pedal edema, no leg swelling, pedal pulses are good. 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 Labs reviewed. CT scan of the head, nonspecific. Assessment and recommendation: 81-year-old male with history of hypertension, COPD, ESRD, hypercholesteremia, end-stage renal disease on dialysis, admitted with a syncopal episode. Unclear at this time. Vasovagal likely. Fluid overload, and sudden fluctuation. The blood pressure possible. Unlikely CVA. Neurological evaluation renal evaluation. Telemetry monitoring and will follow the patient Present on Admission - Present on Admission Any Indicators Present on Admission: No History of DVT/PE: No History of Uncontrolled Diabetes: No Urinary Catheter: No Decubitus Ulcer Present: No Past Patient History - Infectious Disease Hx of Infectious Diseases: None - Past Medical History & Family History Past Medical History?: Yes - Past Social History Smoking Status: Former Smoker - CARDIAC Hx Cardiac Disorders: Yes Hx Hypercholesterolemia: Yes Hx Hypertension: Yes - PULMONARY Hx Respiratory Disorders: Yes Hx Chronic Obstructive Pulmonary Disease (COPD): Yes - NEUROLOGICAL Hx Neurological Disorder: Yes Hx Dizziness: Yes - HEENT Hx HEENT Problems: No - RENAL Hx Chronic Kidney Disease: Yes Hx Dialysis: Yes Type of Dialysis Access: Left AV fistula Date of Last Dialysis Treatment: 01/17/17 Hx Renal Failure: Yes - ENDOCRINE/METABOLIC Hx Endocrine Disorders: No - HEMATOLOGICAL/ONCOLOGICAL Hx Blood Disorders: No - INTEGUMENTARY Hx Dermatological Problems: No - MUSCULOSKELETAL/RHEUMATOLOGICAL Hx Musculoskeletal Disorders: Yes Hx Arthritis: Yes Hx Falls: No - GASTROINTESTINAL Hx Gastrointestinal Disorders: Yes Hx Gastritis: Yes - GENITOURINARY/GYNECOLOGICAL Hx Genitourinary Disorders: No - PSYCHIATRIC Hx Psychophysiologic Disorder: No Hx Substance Use: No - SURGICAL HISTORY Hx Surgeries: Yes Hx Carotid Endarterectomy: Yes - ANESTHESIA Hx Anesthesia: Yes Hx Anesthesia Reactions: No Hx Malignant Hyperthermia: No Has any member of the family had a problem w/ anesthesia?: No (unk) Meds Home Medications: Home Medication List Medication Instructions Recorded Confirmed Type Calcium Acetate [Phoslo] 667 mg PO TID tab 01/19/17 Rx Allergies/Adverse Reactions: Allergies Allergy/AdvReac Type Severity Reaction Status Date / Time No Known Allergies Allergy Verified 07/05/16 17:22 Results - Vital Signs Recent Vital Signs: Last Vital Signs Temp 98.1 F 01/17/17 17:14 Pulse 82 01/17/17 17:15 Resp 18 01/17/17 17:14 BP 186/76 H 01/17/17 17:14 Pulse Ox 97 01/17/17 17:14 - Labs Result Diagrams: 01/17/17 13:32 01/17/17 13:32
--- NOTE | 2017-01-17 20:44 | CT ---
EXAM: CT Head Without Intravenous Contrast CLINICAL HISTORY: 81 years old, male; Signs and symptoms; Syncope and collapse TECHNIQUE: Axial computed tomography images of the head/brain without intravenous contrast. This CT exam was performed using one or more of the following dose reduction techniques: automated exposure control, adjustment of the mA and/or kV according to patient size, and/or use of iterative reconstruction technique. EXAM DATE/TIME: Exam ordered 01/17/2017 7:56 PM COMPARISON: No relevant prior studies available. FINDINGS: Brain: There is generalized cortical atrophy. A 7 mm low-density area in the right thalamus is consistent with a low old lacunar infarct Abnormal low density is noted within the periventricular white matter The ventricles are dilated somewhat greater than that expected for the degree of cortical atrophy which is demonstrated. Low-density is noted within the periventricular white matter extending into the ruiz radiata and centrum semiovale bilaterally. A 3 mm low density lesion is noted within the tod consistent with chronic lacunar infarct No hemorrhage. No edema. Ventricles: Unremarkable. No ventriculomegaly. Bones/joints: Unremarkable. No acute fracture. Soft tissues: Unremarkable. Sinuses: Unremarkable as visualized. No acute sinusitis. Mastoid air cells: Unremarkable as visualized. No mastoid effusion. IMPRESSION: 1. Mild hydrocephalus. Possibility of normal pressure hydrocephalus should be considered 2. Chronic lacunar infarct in the right thalamus and the tod
--- NOTE | 2017-01-17 23:17 | CP.PCM.CON ---
Past Patient History - Infectious Disease Hx of Infectious Diseases: None - Past Medical History & Family History Past Medical History?: Yes - Past Social History Smoking Status: Former Smoker - CARDIAC Hx Cardiac Disorders: Yes Hx Hypercholesterolemia: Yes Hx Hypertension: Yes - PULMONARY Hx Respiratory Disorders: Yes Hx Chronic Obstructive Pulmonary Disease (COPD): Yes - NEUROLOGICAL Hx Neurological Disorder: Yes Hx Dizziness: Yes - HEENT Hx HEENT Problems: No - RENAL Hx Chronic Kidney Disease: Yes Hx Dialysis: Yes Type of Dialysis Access: Left AV fistula Date of Last Dialysis Treatment: 01/17/17 Hx Renal Failure: Yes - ENDOCRINE/METABOLIC Hx Endocrine Disorders: No - HEMATOLOGICAL/ONCOLOGICAL Hx Blood Disorders: No - INTEGUMENTARY Hx Dermatological Problems: No - MUSCULOSKELETAL/RHEUMATOLOGICAL Hx Musculoskeletal Disorders: Yes Hx Arthritis: Yes Hx Falls: No - GASTROINTESTINAL Hx Gastrointestinal Disorders: Yes Hx Gastritis: Yes - GENITOURINARY/GYNECOLOGICAL Hx Genitourinary Disorders: No - PSYCHIATRIC Hx Psychophysiologic Disorder: No Hx Substance Use: No - SURGICAL HISTORY Hx Surgeries: Yes Hx Carotid Endarterectomy: Yes - ANESTHESIA Hx Anesthesia: Yes Hx Anesthesia Reactions: No Hx Malignant Hyperthermia: No Has any member of the family had a problem w/ anesthesia?: No (unk) Meds Allergies/Adverse Reactions: Allergies Allergy/AdvReac Type Severity Reaction Status Date / Time No Known Allergies Allergy Verified 07/05/16 17:22 - Medications Medications: Current Medications Amlodipine Besylate (Norvasc) 10 mg PO DAILY [facility] Last Admin: 01/17/17 21:06 Dose: 10 mg Clopidogrel Bisulfate (Plavix) 75 mg PO DAILY [facility] Losartan Potassium (Cozaar) 25 mg PO DAILY [facility] Rosuvastatin Calcium (Crestor) 10 mg PO HS [facility] Last Admin: 01/17/17 21:06 Dose: 10 mg Vitamin B Complex/Vit C/Folic Acid (Nephro-Mario) 1 tab PO DAILY [facility] Results - Vital Signs Recent Vital Signs: Last Vital Signs Temp 98.1 F 01/17/17 17:14 Pulse 82 01/17/17 17:15 Resp 18 01/17/17 17:14 BP 186/76 H 01/17/17 17:14 Pulse Ox 97 01/17/17 17:14 - Labs Result Diagrams: 01/17/17 13:32 01/17/17 13:32
[2017-01-17 23:25] LABS: HOMOCYSTEINE 20.3 umol/L (6.6-14.8)
[2017-01-18 00:13] LABS: THYROID STIMULATING HORMONE 1.12 mIU/L (0.46-4.68)
[2017-01-18 00:21] LABS: FOLATE > 20.0 ng/mL
[2017-01-18 01:09] VITALS: RESP 20
[2017-01-18 01:51] LABS: FREE T4 1.58 ng/dL (0.78-2.19)
[2017-01-18] MEDS: Multivitamin Vitamin B Complex (Nephro-Vite) Tab PO SCH (10:28)
--- NOTE | 2017-01-18 10:51 | MRI ---
PROCEDURE: MRI BRAIN WITHOUT CONTRAST HISTORY: New stroke COMPARISON: Noncontrast head CT from 01/17/2017. TECHNIQUE: Multiplanar, multisequence MR images of the brain were obtained without intravenous contrast enhancement. FINDINGS: HEMORRHAGE: None DWI: No evidence of an acute or early subacute infarction. BRAIN PARENCHYMA: There are severe chronic microangiopathic changes. There is an old lacunar infarction in the right thalamus and small lacunar infarctions in bilateral basal ganglia. There are extensive chronic microangiopathic changes. There is no mass, mass effect or abnormal extra-axial fluid collection. The midline sagittal structures are normal. VENTRICLES: There is moderate age-related global parenchymal volume loss and proportionate enlargement of the ventricles and cortical sulci. CRANIUM: There is normal bone marrow signal pattern. ORBITS: Grossly unremarkable. PARANASAL SINUSES/MASTOIDS: Predominantly clear. VASCULAR SYSTEM: There are normal signal voids in the larger intracranial arteries. OTHER FINDINGS: None. IMPRESSION: No acute intracranial abnormality. Severe chronic microangiopathic changes and moderate age-related global parenchymal volume loss. Lacunar infarctions in the right thalamus and in bilateral basal ganglia.
--- NOTE | 2017-01-18 11:12 | CP.PCM.CON ---
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 Pt states "this happened to me last time," poor historian. Prior admission in 2015 for same. PMHx COPD, HTN, ESRD with dialysis, hypercholesterolemia. Pt currently complaining of generalized weakness. Denies recent illness; compliant with with hemodialysis. Denies headache, numbness, vomiting, abdominal pain, chest pain, SOB, fever or any other complaints. 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 "THIS HAPPENED TO ME LAST TIME". PRIOR ADMISSION 2015 FOR SAME. pmh of COPD, HTN, ESRD with dialysis, hypercholesteremia. CURRENTLY CO GEN WEAKNESS. DENIES RECENT ILLNESS. COMPLIANT W HD Admitted with syncope during 01/17- only had about 30 mins dialysis Review of Systems - Review of Systems Systems not reviewed;Unavailable: Altered Mental Status Past Patient History - Infectious Disease Hx of Infectious Diseases: None - Past Medical History & Family History Past Medical History?: Yes - Past Social History Smoking Status: Former Smoker Chewing Tobacco Use: No Cigar Use: No Alcohol: None Drugs: Denies - CARDIAC Hx Cardiac Disorders: Yes Hx Hypercholesterolemia: Yes Hx Hypertension: Yes - PULMONARY Hx Respiratory Disorders: Yes Hx Chronic Obstructive Pulmonary Disease (COPD): Yes - NEUROLOGICAL Hx Neurological Disorder: Yes Hx Dizziness: Yes - HEENT Hx HEENT Problems: No - RENAL Hx Chronic Kidney Disease: Yes Hx Dialysis: Yes Type of Dialysis Access: Left AV fistula Date of Last Dialysis Treatment: 01/17/17 Hx Renal Failure: Yes - ENDOCRINE/METABOLIC Hx Endocrine Disorders: No - HEMATOLOGICAL/ONCOLOGICAL Hx Blood Disorders: No - INTEGUMENTARY Hx Dermatological Problems: No - MUSCULOSKELETAL/RHEUMATOLOGICAL Hx Musculoskeletal Disorders: Yes Hx Arthritis: Yes Hx Falls: No - GASTROINTESTINAL Hx Gastrointestinal Disorders: Yes Hx Gastritis: Yes - GENITOURINARY/GYNECOLOGICAL Hx Genitourinary Disorders: No - PSYCHIATRIC Hx Psychophysiologic Disorder: No Hx Substance Use: No - SURGICAL HISTORY Hx Surgeries: Yes Hx Carotid Endarterectomy: Yes - ANESTHESIA Hx Anesthesia: Yes Hx Anesthesia Reactions: No Hx Malignant Hyperthermia: No Has any member of the family had a problem w/ anesthesia?: No (unk) Meds Allergies/Adverse Reactions: Allergies Allergy/AdvReac Type Severity Reaction Status Date / Time No Known Allergies Allergy Verified 07/05/16 17:22 - Medications Medications: Current Medications Amlodipine Besylate (Norvasc) 10 mg PO DAILY [facility] Last Admin: 01/18/17 10:28 Dose: 10 mg Clopidogrel Bisulfate (Plavix) 75 mg PO DAILY [facility] Last Admin: 01/18/17 10:28 Dose: 75 mg Losartan Potassium (Cozaar) 25 mg PO DAILY [facility] Last Admin: 01/18/17 10:28 Dose: 25 mg Rosuvastatin Calcium (Crestor) 10 mg PO HS [facility] Last Admin: 01/17/17 21:06 Dose: 10 mg Vitamin B Complex/Vit C/Folic Acid (Nephro-Mario) 1 tab PO DAILY [facility] Last Admin: 01/18/17 10:28 Dose: 1 tab Physical Exam - Constitutional Appears: Confused, Chronically Ill - Head Exam Head Exam: ATRAUMATIC, NORMAL INSPECTION - Eye Exam Eye Exam: EOMI, Normal appearance - Neck Exam Neck exam: Positive for: Normal Inspection. Negative for: Tenderness - Respiratory Exam Respiratory Exam: Rales, NORMAL BREATHING PATTERN - Cardiovascular Exam Cardiovascular Exam: REGULAR RHYTHM, +S1 - GI/Abdominal Exam GI & Abdominal Exam: Soft. absent: Tenderness - Extremities Exam Extremities exam: Positive for: normal inspection. Negative for: tenderness - Neurological Exam Neurological exam: Altered, CN II-XII Intact - Skin Skin Exam: Dry, Warm Results - Vital Signs Recent Vital Signs: Last Vital Signs Temp 98.0 F 01/18/17 09:06 Pulse 80 01/18/17 09:06 Resp 20 01/18/17 09:06 BP 173/54 H 01/18/17 09:06 Pulse Ox 97 01/18/17 09:06 - Labs Result Diagrams: 01/17/17 13:32 01/17/17 13:32 Labs: Laboratory Results - last 24 hr 01/17/17 01/17/17 01/17/17 22:55 22:55 22:55 Hemoglobin A1c 5.2 Ammonia 19 Total Creatine Kinase CK-MB (Mass) Troponin I, Quant Vitamin B12 768 Folate > 20.0 Homocysteine 20.3 H Free T4 TSH 3rd Generation Prolactin 8.9 01/17/17 01/18/17 22:55 04:56 Hemoglobin A1c Ammonia Total Creatine Kinase 46 L CK-MB (Mass) 0.36 Troponin I, Quant 0.0390 Vitamin B12 Folate Homocysteine Free T4 1.58 TSH 3rd Generation 1.12 Prolactin Assessment & Plan (1) Arteriolar nephritis, stage 5 chronic kidney disease or end stage renal disease Status: Acute (2) CHF (congestive heart failure) Status: Acute (3) COPD (chronic obstructive pulmonary disease) Status: Acute (4) ESRD (end stage renal disease) on dialysis Status: Acute (5) Syncope Status: Acute - Assessment and Plan (Free Text) Plan: Will need dilaysis today- not completed 01/17 syncope workup monitor HTN, orthostatic changes
--- NOTE | 2017-01-18 21:04 | C.PDOC ---
History Of Present Illness HISTORY OF LOC DURING HD . NO WITNESSED TONIC OR CLONIC ACTIVITIES. NO B/B INCONTINENCE OR BITTEN TONGUE. HX SIMILAR EPISODES IN THE PAST PER DOCUMENTATION PATIENT STATES THAT HE IS GENERALLY TIERED AND NO LOC. DENIES VISUAL, BULBAR OR ANY FOCAL SENSORY MOTOR DYSFUNCTION Time Seen by Provider: 01/17/17 12:51 Chief Complaint (Nursing): Weakness/Neurological Deficit Onset/Duration Of Symptoms: Mins Current Symptoms Are (Timing): Gone Number Of Syncopal Episodes: 2 Activity At Onset Of Symptoms: Lying Seizure Or Post-ictal Symptoms: None Fall Associated With With Symptoms: No Severity: Mild - Symptoms Of CVA Associated Symptoms: Decreased Ability To Walk, New Confusion Character Of Deficits: Left: Weakness, Right: Weakness, Leg: Weakness, Sensory Loss Recent Aspirin Use: Yes (Last Taken) Current Coumadin Use?: No Recent Head Trauma: No Past Medical History Vital Signs: Last Vital Signs Temp 97.9 F 01/19/17 08:37 Pulse 88 01/19/17 08:37 Resp 20 01/19/17 08:37 BP 121/75 01/19/17 08:37 Pulse Ox 97 04/10/17 21:18 - Medical History PMH: Arthritis, COPD, Gastritis, HTN, Hypercholesterolemia, End Stage Renal Disease (On dialysis), Chronic Kidney Disease Surgical History: Carotid Endarterectomy, Endoscopy - [facility] Procedures DIALYSIS ARTERIOVENOSTOM (03/16/13) HEAD & NECK ENDARTER NEC (12/06/14) HEMODIALYSIS (01/13/15) PACKED CELL TRANSFUSION (01/22/13) PROCEDURE ON SINGLE VESSEL (12/06/14) TRANSURETHRAL PROSTATECTOMY ([place]IP) (01/22/13) VENOUS CATHETERIZATION FOR RENAL DIALYSIS (01/22/13) Family History: States: Unknown Family Hx - Social History Hx Tobacco Use: No Hx Alcohol Use: No Hx Substance Use: No - Immunization History Hx Tetanus Toxoid Vaccination: Yes Hx Influenza Vaccination: Yes (2015) Hx Pneumococcal Vaccination: Yes (2015) Physical Exam - Physical Exam Appears: No Acute Distress Skin: Normal Color Eye(s): bilateral: Normal Inspection, PERRL, EOMI Neck: Normal Cardiovascular: Rhythm Regular Pulses: Left Carotid: Normal, Right Carotid: Normal DTR: Bicep (R): 0, Bicep (L): 0, Tricep (R): 0, Tricep (L): 0, Knee (R): 0, Knee (L): 0, Ankle (R): 0, Ankle (L): 0 Neurological/Psych: Oriented x3, Normal Speech, Normal Cognition, Normal Motor Pain Response: Flexor Response To Pain Extremity: Right: No Drift, Left: No Drift, Upper: No Drift, Lower: No Drift Additional Physical Exam Comments: SIGNIFICANT SENSORY MOTOR NEUROPATHY ED Course And Treatment - Laboratory Results Result Diagrams: 01/17/17 13:32 01/17/17 13:32 O2 Sat by Pulse Oximetry: 97 Disposition - Disposition Disposition: HOSPITALIZED Condition: STABLE - Clinical Impression Clinical Impression: ESRD (end stage renal disease) on dialysis, Syncope, Dizziness, Muscle weakness , Dizziness
[2017-01-19 08:38] VITALS: BP 121/75; PULSE 88; TEMP 97.9
[2017-01-19] MEDS: Multivitamin Vitamin B Complex (Nephro-Vite) Tab PO SCH (09:21)
--- NOTE | 2017-01-19 13:52 | CP.PCM.DIS ---
Provider - Provider Date of Admission: 01/17/17 15:28 Attending physician: Heron Seth MD Time Spent in preparation of Discharge (in minutes): 45 Hospital Course - Lab Results Lab Results: Most Recent Lab Values WBC 10.2 K/uL (4.8-10.8) 01/17/17 13:32 RBC 3.90 Mil/uL (4.40-5.90) L 01/17/17 13:32 Hgb 12.0 g/dL (12.0-18.0) 01/17/17 13:32 Hct 36.9 % (35.0-51.0) 01/17/17 13:32 MCV 94.6 fL (80.0-94.0) H D 01/17/17 13:32 MCH 30.9 pg (27.0-31.0) 01/17/17 13:32 MCHC 32.7 g/dL (33.0-37.0) L 01/17/17 13:32 RDW 14.1 % (11.5-14.5) 01/17/17 13:32 Plt Count 216 K/uL (130-400) 01/17/17 13:32 MPV 8.6 fL (7.2-11.7) 01/17/17 13:32 Neut % (Auto) 76.0 % (50.0-75.0) H 01/17/17 13:32 Lymph % (Auto) 8.9 % (20.0-40.0) L 01/17/17 13:32 Guthrie % (Auto) 7.2 % (0.0-10.0) 01/17/17 13:32 Eos % (Auto) 7.5 % (0.0-4.0) H 01/17/17 13:32 Baso % (Auto) 0.4 % (0.0-2.0) 01/17/17 13:32 Neut # 7.8 K/uL (1.8-7.0) H 01/17/17 13:32 Lymph # 0.9 K/uL (1.0-4.3) L 01/17/17 13:32 Guthrie # 0.7 K/uL (0.0-0.8) 01/17/17 13:32 Eos # 0.8 K/uL (0.0-0.7) H 01/17/17 13:32 Baso # 0.0 K/uL (0.0-0.2) 01/17/17 13:32 Neutrophils % (Manual) 82 % (50-75) H 01/17/17 13:32 Band Neutrophils % 1 % (0-2) 01/17/17 13:32 Lymphocytes % (Manual) 9 % (20-40) L 01/17/17 13:32 Reactive Lymphs % 1 % (0-0) H 01/17/17 13:32 Monocytes % (Manual) 6 % (0-10) 01/17/17 13:32 Basophils % (Manual) 1 % (0-2) 01/17/17 13:32 Platelet Estimate Normal (NORMAL) 01/17/17 13:32 Large Platelets Present 01/17/17 13:32 Ovalocytes Slight 01/17/17 13:32 Sodium 138 mmol/L (132-148) 01/17/17 13:32 Potassium 4.4 mmol/L (3.6-5.2) 01/17/17 13:32 Chloride 92 mmol/L (98-107) L 01/17/17 13:32 Carbon Dioxide 29 mmol/L (22-30) 01/17/17 13:32 Anion Gap 22 (10-20) H 01/17/17 13:32 BUN 42 mg/dL (9-20) H 01/17/17 13:32 Creatinine 6.9 MG/DL (0.8-1.5) H 01/17/17 13:32 Est GFR ( Amer) 9 01/17/17 13:32 Est GFR (Non-Af Amer) 8 01/17/17 13:32 POC Glucose (mg/dL) 133 mg/dL (65-110) H 01/18/17 12:52 Random Glucose 170 mg/dL (75-110) H 01/17/17 13:32 Hemoglobin A1c 5.2 % (4.2-6.5) 01/17/17 22:55 Calcium 9.2 mg/dl (8.6-10.4) 01/17/17 13:32 Total Bilirubin 0.7 mg/dL (0.2-1.3) 01/17/17 13:32 AST 19 U/L (17-59) 01/17/17 13:32 ALT 21 U/L (21-72) D 01/17/17 13:32 Alkaline Phosphatase 80 U/L (38-126) 01/17/17 13:32 Ammonia 19 umol/L (9-33) 01/17/17 22:55 Total Creatine Kinase 46 U/L (55-170) L 01/18/17 04:56 CK-MB (Mass) 0.36 ng/mL (0.0-3.38) 01/18/17 04:56 Troponin I 0.0190 ng/mL (0.00-0.120) 01/17/17 13:32 Troponin I, Quant 0.0390 ng/mL (0.00-0.120) 01/18/17 04:56 NT-Pro-B Natriuret Pep 88556 pg/mL (0-900) H 01/17/17 13:32 Total Protein 7.8 g/dL (6.3-8.3) 01/17/17 13:32 Albumin 4.3 g/dL (3.5-5.0) 01/17/17 13:32 Globulin 3.5 gm/dL (2.2-3.9) 01/17/17 13:32 Albumin/Globulin Ratio 1.2 (1.0-2.1) 01/17/17 13:32 Vitamin B12 768 pg/mL (239-931) 01/17/17 22:55 Folate > 20.0 ng/mL 01/17/17 22:55 Homocysteine 20.3 umol/L (6.6-14.8) H 01/17/17 22:55 Free T4 1.58 ng/dL (0.78-2.19) 01/17/17 22:55 TSH 3rd Generation 1.12 mIU/L (0.46-4.68) 01/17/17 22:55 Prolactin 8.9 ng/mL (3.7-17.9) 01/17/17 22:55 - Hospital Course Hospital Course: Chief complaint: Syncopal episode. History present illness: 81-year-old male with history of hypertension, hypercholesteremia, gout, end- stage renal disease on dialysis, status post a carotid endarterectomy bilaterally, history of CVA in the past. Patient was sent to emergency room following the dialysis, and during the dialysis episode today, patient developed a sudden onset of dizzy spell, and he was not responding. Immediately patient was sent to the emergency room. Upon arrival to the emergency room patient was alert awake. He was not in any distress. He was moving all 4 extremities at the time. He was not having any symptoms. Patient claims that he did have a similar episode in the past. Past medical history hypertension, end-stage renal disease on dialysis, high cholesterol, gout, arthritis. Allergy: No known drug allergy. Personal history: Used to be a smoker in the past and no alcohol no drugs no Surgical history bilateral carotid endarterectomy, AV shunt. Family history significant for heart disease. Review of systems: Currently having no headache, denies any visual symptoms, he is feeling much better at this time, no chest pain, no shortness of breath, he does not know what happened during the dialysis. On examination: HEENT PERRLA, neck supple No thyromegaly was noted and no cervical adenopathy noted Chest bilateral good air entry, no wheezing or rales noted CVS regular heart sound, no murmur Abdomen soft and no organomegaly Extremities no pedal edema, no leg swelling, pedal pulses are good. 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 Labs reviewed. CT scan of the head, nonspecific. Assessment and recommendation: 81-year-old male with history of hypertension, COPD, ESRD, hypercholesteremia, end-stage renal disease on dialysis, admitted with a syncopal episode. Unclear at this time. Vasovagal likely. Fluid overload, and sudden fluctuation. The blood pressure possible. Unlikely CVA. Neurological evaluation renal evaluation. Telemetry monitoring and will follow the patient Patient was seen by neurologist, patient underwent a CT scan of the head. Nonspecific findings. Carotid Doppler nonspecific I spoke to the patient's daughter in detail. Explained to her about the condition. Patient is currently stable. He will be discharged home. Follow up as an outpatient. Final diagnosis most likely vasovagal attack. A sudden blood pressure changes, likely orthostatic hypotension. End-stage renal disease on dialysis. History of carotid endarterectomy. Hypertension and gout. Discharge Exam - Head Exam Head Exam: ATRAUMATIC, NORMAL INSPECTION Discharge Plan - Follow Up Plan Condition: STABLE Disposition: HOME/ ROUTINE Instructions: Heart Failure (DC), Heart Failure (GEN), Dialysis Diet (DC), Heart Healthy Diet (DC), Syncope (DC), Fall Prevention for Older Adults (GEN), Low Sodium Diet (DC), End Stage Kidney Disease (DC) Additional Instructions: Activity as tolerated. Home physical therapy. Referrals: Davon Vines MD [Staff Provider] - Heron Seth MD [Staff Provider] - 1 Week
--- NOTE | 2017-01-20 10:53 | VASCLAB ---
PROCEDURE: HISTORY: Syncope, Right carotid stenosis, cererebro-vascular atherosclerosis COMPARISON: None available. TECHNIQUE: Grayscale and duplex Doppler evaluation of the cervical carotid and vertebral arteries were performed. The common carotid, carotid bifurcations and cervical Internal Carotid Artery (ICA) and proximal External Carotid Artery (ECA) were evaluated. The vertebral arteries were evaluated for gross patency and flow direction. Report prepared by Maurice Mcclain, T FINDINGS: RIGHT CAROTID ARTERIES: 1. Common Carotid Artery: Moderate plaque formation of the right distal CCA which results in No hemodynamically significant stenosis. Maximum Peak Systolic velocity: 92.5 cm/sec: End-diastolic velocity 0 cm/sec. 2. Carotid Bifurcation: Calcific plaque formation. Maximum Peak Systolic velocity: 88.6 cm/sec: End-diastolic velocity 0 cm/sec. 3. Internal Carotid Artery: Plaque description: 3.1. Proximal Segment: Peak systolic velocity 95.2 cm/sec: End-diastolic velocity 10.3 cm/sec - % stenosis 3.2. Middle Segment: Peak systolic velocity 87.3 cm/sec: End-diastolic velocity 10.3 cm/sec - % stenosis 3.3. Distal Segment: Peak systolic velocity 65.3 cm/sec: End-diastolic velocity 9.1 cm/sec - % stenosis 4. External Carotid Artery: Significant focal plaque formation. Peak systolic velocity 143.5 cm/sec 5. ICA/CCA Ratio: 1.0 LEFT CAROTID ARTERIES: 1. Common Carotid Artery: Moderate plaque formation of the left distal CCA which results in Non-hemodynamically significant stenosis. Maximum Peak Systolic velocity: 80.5 cm/sec: End-diastolic velocity 0 cm/sec. 2. Carotid Bifurcation: Calcific plaque formation. Maximum Peak Systolic velocity: 91.0 cm/sec: End-diastolic velocity 6.2 cm/sec. 3. Internal Carotid Artery: Plaque description: Moderate irregular, heterogeneous and calcific 3.1. Proximal Segment: Peak systolic velocity 114.5 cm/sec: End-diastolic velocity 17.2 cm/sec - % stenosis 30-49% 3.2. Middle Segment: Peak systolic velocity 121.3 cm/sec: End-diastolic velocity 17.2 cm/sec - % stenosis 3.3. Distal Segment: Peak systolic velocity 54.7 cm/sec: End-diastolic velocity 0 cm/sec - % stenosis 4. External Carotid Artery: No significant focal plaque formation. Peak systolic velocity 114.9 cm/sec 5. ICA/CCA Ratio: 1.5 VERTEBRAL ARTERIES: 1. Right Vertebral Artery: The right vertebral artery flow direction is antegrade. 2. Left Vertebral Artery: The left vertebral artery flow direction is antegrade. OTHER FINDINGS: 1. Right Brachial Blood pressure: MmHg. Previous Right carotid endarterectomy 2. Left Brachial Blood pressure: MmHg. Left arm AVF for hemodialysis access IMPRESSION: RIGHT: Duplex scan does suggest less than 30% Non-hemodynamically stenosis of the right internal carotid artery. LEFT: Duplex scan does suggest 30-49%(closer to the highest end of the range given) Non-hemodynamically stenosis of the left internal carotid artery
--- NOTE | 2017-01-20 14:08 | CARD ---
APPROVED REPORT EKG Measurement Heart [id number] <Conclusion> Normal sinus rhythm Possible Left atrial enlargement Left ventricular hypertrophy Abnormal ECG
[2017-01-22 21:06] VITALS: O2SAT 97
== END 2017-01-19 15:30 | disposition home or self-care (01) ==
LOC: C.ER 12:16 → C.9E 15:28 → C.6T 16:33
PROVIDERS: ADMIT Internal Medicine; ATTEND Internal Medicine
DX: R55 Syncope and collapse (principal); I12.0 Hypertensive chronic kidney disease with stage 5 chronic kidney disease or end stage renal disease; E78.00 Pure hypercholesterolemia, unspecified; N18.6 End stage renal disease; Z87.891 Personal history of nicotine dependence; Z99.2 Dependence on renal dialysis; J44.9 Chronic obstructive pulmonary disease, unspecified; I65.21 Occlusion and stenosis of right carotid artery
CPT/HCPCS: 36415; 70450; 70551; 80053; 82140; 82607; 82746; 82948; 83036; 83090; 83880; 84146; 84439; 84443; 84484; 85025; 93005; 93880; 99285; G0257; G0378; J1644

== ENCOUNTER 2017-03-10 15:11 | Emergency (ER) | payer MEDICARE, BC ==
[2017-03-10 15:32] VITALS: BMI 23.9
[2017-03-10 15:33] VITALS: RESP 18; TEMP 97.6
--- NOTE | 2017-03-10 16:01 | C.PDOC ---
History Of Present Illness 81 yr old male with PMhx of COPD, HTN, ESRD on HD (M/W/F) & hypercholesterolemia , presents to the ER with complaints of feeling dizzy during dialysis today. Patient states he was only able to complete 2 and half hours before he felt like he was going to pass out. Patient admits of not eating breakfast today. Family member at bed side, similar episode have happened before and last time the patient did pass out. Currently in ER, patient denies fever, chest pain, SOB , nausea, vomiting, dizziness, headache, weakness or numbness. 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) Past Medical History Reviewed: Historical Data, Nursing Documentation, Vital Signs Vital Signs: Last Vital Signs Temp 97.6 F 03/10/17 15:32 Pulse 67 03/10/17 18:34 Resp 18 03/10/17 18:34 BP 178/61 H 03/10/17 18:34 Pulse Ox 100 03/10/17 18:34 - Medical History PMH: Arthritis, COPD, Gastritis, HTN, Hypercholesterolemia, End Stage Renal Disease (On dialysis), Chronic Kidney Disease Surgical History: Carotid Endarterectomy, Endoscopy - [facility] Procedures DIALYSIS ARTERIOVENOSTOM (03/16/13) HEAD & NECK ENDARTER NEC (12/06/14) HEMODIALYSIS (01/13/15) PACKED CELL TRANSFUSION (01/22/13) PROCEDURE ON SINGLE VESSEL (12/06/14) TRANSURETHRAL PROSTATECTOMY ([place]) (01/22/13) VENOUS CATHETERIZATION FOR RENAL DIALYSIS (01/22/13) Family History: States: No Known Family Hx - Social History Hx Tobacco Use: No Hx Alcohol Use: No Hx Substance Use: No - Immunization History Hx Tetanus Toxoid Vaccination: Yes Hx Influenza Vaccination: Yes (2015) Hx Pneumococcal Vaccination: Yes (2015) Review Of Systems Except As Marked, All Systems Reviewed And Found Negative. Constitutional: Negative for: Fever Cardiovascular: Negative for: Chest Pain Respiratory: Negative for: Shortness of Breath Gastrointestinal: Negative for: Nausea, Vomiting Neurological: Positive for: Dizziness (None currently in ER. ). Negative for: Weakness, Numbness, Headache Physical Exam - Physical Exam Appears: Non-toxic, Chronically Ill, Other ((+) Obese.) Skin: Warm, Dry, No Rash Head: Atraumatic, Normacephalic Eye(s): bilateral: Normal Inspection, PERRL, EOMI Oral Mucosa: Moist Neck: Normal, Normal ROM, Supple Chest: Symmetrical, No Tenderness Cardiovascular: Rhythm Regular, No Murmur Respiratory: Decreased Breath Sounds (At the bases.), No Rales, No Rhonchi, No Wheezing Gastrointestinal/Abdominal: Normal Exam, Soft, No Tenderness, No Guarding, No Rebound Extremity: Normal ROM, Other (Fistula to the left upper extremity.) Neurological/Psych: Oriented x3, Normal Speech Gait: Unable To Assess ED Course And Treatment - Laboratory Results Result Diagrams: 03/10/17 16:53 03/10/17 16:53 Lab Interpretation: No Acute Changes ECG: Interpreted By Me, Viewed By Me ECG Rhythm: Sinus Rhythm ECG Interpretation: No Acute Changes, No Changes From Prior (01/17/17) Interpretation Of ECG: NS at 63 bpm with LVH and repolarization Rate From EC (BPM) O2 Sat by Pulse Oximetry: 99 (RA ) Pulse Ox Interpretation: Normal - Other Rad CXR X-Ray: Viewed By Me, Read By Radiologist Interpretation: PROCEDURE: CHEST RADIOGRAPH, 1 VIEW. HISTORY: SOB. COMPARISON: Comparison chest 03/01/2016. FINDINGS: LUNGS: No focal consolidation/active disease. PLEURA: No pneumothorax or pleural fluid seen. CARDIOVASCULAR: Cardiomegaly. OSSEOUS STRUCTURES: No significant abnormalities. VISUALIZED UPPER ABDOMEN: Normal. OTHER FINDINGS: None. IMPRESSION: No active disease. Medical Decision Making Medical Decision Making: Impression: weakness and dizzy after HD Prior records reviewed: Patient last seen and admitted 01/17/17 for syncope Plan: * CXR * EKG * Troponin * CBC * CMP * Urinalysis Progress: Labs reviewed [address] Seth [address] Seth who recommends contacting Dr Vines to see if needs dialysis or if can be done outpatient [address] Vines [address] Puentes covering for Dr Vines. She states if patient seems stable based on labs and discussion and can have dialysis outpatient, as long as cleared medically for near syncope [address] Seth to inform discussion with supervisor ditching. He agrees patient to be discharged and follow up Disposition Counseled Patient/Family Regarding: Diagnosis, Need For Followup - Disposition Referrals: Heron Seth MD [Staff Provider] - Disposition: HOME/ ROUTINE Disposition Time: 18:23 Condition: IMPROVED Additional Instructions: Follow up with your primary medical doctor or clinic in 2-5 days for further evaluation. Take your usual medications as prescribed. Return to the emergency department at any time if symptoms persist or worsen. Instructions: Near Syncope (ED) Forms: NUVETA (Czech) - POA Present On Arrival: None - Clinical Impression Clinical Impression: Near syncope, ESRD (end stage renal disease) on dialysis - PA / LINOLEUM LAYER HELPER / Resident Statement MD/DO has reviewed & agrees with the documentation as recorded. - Scribe Statement The provider has reviewed the documentation as recorded by the Scribe Izzy Cross All medical record entries made by the Bruceibfátima were at my direction and personally dictated by me. I have reviewed the chart and agree that the record accurately reflects my personal performance of the history, physical exam, medical decision making, and the department course for this patient. I have also personally directed, reviewed, and agree with the discharge instructions and disposition.
--- NOTE | 2017-03-10 16:55 | RAD ---
PROCEDURE: CHEST RADIOGRAPH, 1 VIEW HISTORY: SOB COMPARISON: Comparison chest 03/01/2016 FINDINGS: LUNGS: No focal consolidation/active disease. PLEURA: No pneumothorax or pleural fluid seen. CARDIOVASCULAR: Cardiomegaly. OSSEOUS STRUCTURES: No significant abnormalities. VISUALIZED UPPER ABDOMEN: Normal. OTHER FINDINGS: None. IMPRESSION: No active disease.
[2017-03-10 16:57] LABS: BASO # 0.1 K/uL (0.0-0.2); BASO % 0.7 % (0.0-2.0); EOS # 0.6 K/uL (0.0-0.7); EOS % 5.8 % (0.0-4.0); HEMATOCRIT 38.9 % (35.0-51.0); LYMPH # 1.1 K/uL (1.0-4.3); LYMPH % 11.8 % (20.0-40.0); MEAN CELL VOLUME 93.1 fL (80.0-94.0); MEAN CORPUSCULAR HEMOGLOBIN 31.3 pg (27.0-31.0); MEAN CORPUSCULAR HGB CONC 33.6 g/dL (33.0-37.0); MEAN PLATELET VOLUME 8.8 fL (7.2-11.7); MONO # 0.8 K/uL (0.0-0.8); NRBC % 0.1 % (0.0-2.0); RED CELL DISTRIBUTION WIDTH 14.6 % (11.5-14.5); WHITE BLOOD COUNT 9.6 K/uL (4.8-10.8)
[2017-03-10 17:05] LABS: INR 0.9
[2017-03-10 17:07] LABS: POTASSIUM 4.2 mmol/L (3.6-5.2)
[2017-03-10 17:10] LABS: ALB/GLOB RATIO 1.4 (1.0-2.1); CALCIUM 9.6 mg/dl (8.6-10.4); TOTAL PROTEIN 7.7 g/dL (6.3-8.3)
[2017-03-10 17:21] LABS: TROPONIN I 0.022 ng/mL (0.00-0.120)
[2017-03-10 18:35] VITALS: BP 178/61; PULSE 67
[2017-03-10 18:48] VITALS: O2SAT 99
--- NOTE | 2017-03-11 11:42 | CARD ---
APPROVED REPORT EKG Measurement Heart [id number] <Conclusion> Normal sinus rhythm Left ventricular hypertrophy with repolarization abnormality Abnormal ECG
== END 2017-03-10 19:11 | disposition home or self-care (01) ==
LOC: C.ER 15:11
DX: N18.6 End stage renal disease (principal); I12.0 Hypertensive chronic kidney disease with stage 5 chronic kidney disease or end stage renal disease; Z99.2 Dependence on renal dialysis; R55 Syncope and collapse

== ENCOUNTER 2018-11-04 15:03 | Emergency (ER) | payer BC, MEDICARE ==
[2018-11-04 15:03] VITALS: BMI 23.9
[2018-11-04 15:19] VITALS: TEMP 97.9
--- NOTE | 2018-11-04 15:38 | C.PDOC ---
History Of Present Illness 83-year-old male, whose PMHx includes ESRD (Dialysis M-W-F), presents to the ED for evaluation of weakness and dizziness which began while undergoing dialysis earlier today. Patient states he woke up and had breakfast this morning without any symptoms. He developed symptoms while undergoing dialysis but was able to complete the full treatment. Patient reports experiencing similar symptoms in the past and was evaluated in the ED on 03/10/17. At the time, patient did not eat breakfast prior to undergoing dialysis. Patient's daughter contacted his PMD, Dr. Seth, who advised to present to the ED. Patient reports slightly decreased appetite but otherwise denies fever, chills, chest pain, palpitations, nausea, vomiting, change in bowel habits, or decreased ability to walk/move. Time Seen by Provider: 11/04/18 15:20 Chief Complaint (Nursing): GI Problem History Per: Patient History/Exam Limitations: no limitations Onset/Duration Of Symptoms: Hrs Current Symptoms Are (Timing): Still Present Activity At Onset Of Symptoms: Sitting Past Medical History Reviewed: Historical Data, Nursing Documentation, Vital Signs Vital Signs: Last Vital Signs Temp 97.9 F 11/04/18 15:17 Pulse 57 L 11/04/18 15:17 Resp 20 11/04/18 15:17 BP 171/59 H 11/04/18 15:17 Pulse Ox 97 11/04/18 15:17 - Medical History PMH: Arthritis, COPD, Gastritis, HTN, Hypercholesterolemia, End Stage Renal Disease (On dialysis), Chronic Kidney Disease Surgical History: Carotid Endarterectomy, Endoscopy - [facility] Procedures DIALYSIS ARTERIOVENOSTOM (03/16/13) HEAD & NECK ENDARTER NEC (12/06/14) HEMODIALYSIS (01/13/15) PACKED CELL TRANSFUSION (01/22/13) PROCEDURE ON SINGLE VESSEL (12/06/14) TRANSURETHRAL PROSTATECTOMY ([place]) (01/22/13) VENOUS CATHETERIZATION FOR RENAL DIALYSIS (01/22/13) Family History: States: Unknown Family Hx - Social History Hx Tobacco Use: No Hx Alcohol Use: No Hx Substance Use: No - Immunization History Hx Tetanus Toxoid Vaccination: Yes Hx Influenza Vaccination: Yes (2015) Hx Pneumococcal Vaccination: Yes (2015) Review Of Systems Constitutional: Positive for: Other (slightly decreased appetite ) Cardiovascular: Negative for: Chest Pain, Palpitations Gastrointestinal: Negative for: Nausea, Vomiting, Diarrhea, Constipation Neurological: Positive for: Weakness, Dizziness Physical Exam - Physical Exam Appears: Non-toxic, No Acute Distress Skin: Normal Color, Warm, Dry Head: Atraumatic, Normacephalic Eye(s): bilateral: Normal Inspection Oral Mucosa: Moist Neck: Supple Chest: Symmetrical, No Deformity, No Tenderness Cardiovascular: Rhythm Regular, No Murmur Respiratory: Normal Breath Sounds, No Rales, No Rhonchi, No Wheezing Gastrointestinal/Abdominal: Soft, No Tenderness, No Guarding, No Rebound Extremity: Normal ROM, Capillary Refill (less than 2 seconds ) Neurological/Psych: Oriented x3, Normal Speech, Normal Cognition, Normal Motor, Normal Sensation, Other (no focal weakness, good strength, patient able to lift both legs ) ED Course And Treatment - Laboratory Results Result Diagrams: 11/04/18 16:25 11/04/18 16:25 Lab Interpretation: No Acute Changes ECG: Interpreted By Me ECG Rhythm: Sinus Bradycardia, ST/T Changes (Inversions laterally) ECG Interpretation: No Acute Changes O2 Sat by Pulse Oximetry: 97 (on RA ) Pulse Ox Interpretation: Normal Progress Note: Bloodwork, urinalysis, and EKG ordered and reviewed. Reevaluation Time: 17:01 Reassessment Condition: Improved (Patient feels well.) - Physician Consult Information Time Consulting Physician Contacted: 17:02 Physician Contacted: Heron Seth Outcome Of Conversation: Patient to follow up with him in the office tomorrow. Disposition Counseled Patient/Family Regarding: Studies Performed, Diagnosis, Need For Followup - Disposition Referrals: Heron Seth MD [Staff Provider] - Disposition: HOME/ ROUTINE Disposition Time: 17:22 Condition: IMPROVED Instructions: Generalized Weakness (DC), Weakness (ED) Forms: [employer] (Azeri) - Clinical Impression Clinical Impression: ESRD (end stage renal disease) on dialysis, Weakness - Scribe Statement The provider has reviewed the documentation as recorded by the Scribe (Meagan Smalls) Provider Attestation: All medical record entries made by the Scribe were at my direction and personally dictated by me. I have reviewed the chart and agree that the record accurately reflects my personal performance of the history, physical exam, medi claudia decision making, and the department course for this patient. I have also personally directed, reviewed, and agree with the discharge instructions and disposition.
[2018-11-04 16:30] LABS: BASO # 0.1 K/uL (0.0-0.2); EOS # 0.3 K/uL (0.0-0.7); EOS % 2.9 % (0.0-4.0); HEMOGLOBIN 12.6 g/dL (12.0-18.0); LYMPH # 0.8 K/uL (1.0-4.3); LYMPH % 8.7 % (20.0-40.0); MEAN CORPUSCULAR HEMOGLOBIN 32.8 pg (27.0-31.0); MEAN CORPUSCULAR HGB CONC 33.6 g/dL (33.0-37.0); MEAN PLATELET VOLUME 8.4 fL (7.2-11.7); MONO # 0.6 K/uL (0.0-0.8); MONO % 5.8 % (0.0-10.0); NEUT # 7.8 K/uL (1.8-7.0); NEUT % 81.6 % (50.0-75.0); PLATELET COUNT 165 K/uL (130-400); RBC 3.83 Mil/uL (4.40-5.90); WHITE BLOOD COUNT 9.5 K/uL (4.8-10.8)
[2018-11-04 16:42] LABS: MEAN CELL VOLUME 97.8 fL (80.0-94.0)
[2018-11-04 16:45] LABS: ALB/GLOB RATIO 1.9 (1.0-2.1); ALBUMIN 4.2 g/dL (3.5-5.0); CALCIUM 8.3 mg/dl (8.6-10.4)
[2018-11-04 16:57] LABS: TROPONIN I 0.02 ng/mL (0.00-0.120)
[2018-11-04 17:43] VITALS: BP 167/87; PULSE 66; RESP 17; O2SAT 95
[2018-11-04 18:44] LABS: BANDS 2 % (0-2); EOSINOPHIL 5 % (0-4); LYMPHOCYTE 13 % (20-40); MONOCYTE 5 % (0-10); NEUTROPHIL 75 % (50-75); PLATELET ESTIMATE NORMAL (NORMAL); TOTAL CELLS COUNTED 100
--- NOTE | 2018-11-05 23:56 | CARD ---
APPROVED REPORT Date of service: 11/04/2018 EKG Measurement Heart [id number] CT [id number] [id number] <Conclusion> Sinus bradycardia Cannot rule out Anterior infarct, age undetermined T wave abnormality, consider lateral ischemia Abnormal ECG
== END 2018-11-04 17:52 | disposition home or self-care (01) ==
LOC: C.ER 15:03
DX: I12.0 Hypertensive chronic kidney disease with stage 5 chronic kidney disease or end stage renal disease (principal); N18.6 End stage renal disease; Z99.2 Dependence on renal dialysis; R53.1 Weakness; E78.00 Pure hypercholesterolemia, unspecified; J44.9 Chronic obstructive pulmonary disease, unspecified